=== PATIENT | male | born 1940 | race Caucasian/White ===

== ENCOUNTER 2016-07-12 10:51 | Outpatient (CLI) | payer MEDICARE, OTHER | END 2016-07-12 10:52 | disposition home or self-care (01) | LOC: SC 10:51 | PROVIDERS: ATTEND Nurse Practitioner Family | DX: G47.33 Obstructive sleep apnea (adult) (pediatric) (principal) | CPT/HCPCS: 99214; G0463; 99212 ==

== ENCOUNTER 2016-09-12 05:19 | Outpatient (CLI) | payer MEDICARE, OTHER | END 2016-09-12 05:20 | disposition critical access hospital (66) | DX: R06.00 Dyspnea, unspecified (principal) | CPT/HCPCS: A0425; A0427 ==

== ENCOUNTER 2016-09-12 05:37 | Emergency (ER) | payer MEDICARE, OTHER ==
[2016-09-12] MEDS ORDERED: FUROSEMIDE 40 MG/4 ML VIAL IVP STA (06:49)
[2016-09-12] MEDS ORDERED: FUROSEMIDE 40 MG/4 ML VIAL ONE (06:57)
[2016-09-12] MEDS ORDERED: ALBUTEROL 8 GM INHALER INH STA (07:48)
[2016-09-12] MEDS ORDERED: ALBUTEROL 8 GM INHALER INH ONE (07:56)
== END 2016-09-12 08:13 | disposition home or self-care (01) ==
DX: R06.00 Dyspnea, unspecified (principal); I48.91 Unspecified atrial fibrillation; I45.10 Unspecified right bundle-branch block; Z79.01 Long term (current) use of anticoagulants; I10 Essential (primary) hypertension; E78.00 Pure hypercholesterolemia, unspecified; J45.909 Unspecified asthma, uncomplicated
CPT/HCPCS: 36415; 71020; 80048; 81001; 83880; 84484; 85025; 85610; 85730; 93005; 93010; 94640; 96374; 99214; 99284; A9270; G0463

== ENCOUNTER 2016-09-12 10:19 | Outpatient (CLI) | payer MEDICARE, OTHER | END 2016-09-12 10:20 | disposition home or self-care (01) | DX: G47.33 Obstructive sleep apnea (adult) (pediatric) (principal) ==

== ENCOUNTER 2016-11-14 10:49 | Outpatient (CLI) | payer MEDICARE, OTHER | END 2016-11-14 10:50 | disposition home or self-care (01) | LOC: SC 10:49 | PROVIDERS: ATTEND Nurse Practitioner Family | DX: G47.33 Obstructive sleep apnea (adult) (pediatric) (principal) | CPT/HCPCS: 99214; G0463; 99212 ==

== ENCOUNTER 2017-01-17 10:39 | Outpatient (CLI) | payer MEDICARE, OTHER | END 2017-01-17 10:40 | disposition home or self-care (01) | LOC: SC 10:39 | PROVIDERS: ATTEND Nurse Practitioner Family | DX: G47.33 Obstructive sleep apnea (adult) (pediatric) (principal) | CPT/HCPCS: 99214; G0463; 99212 ==

== ENCOUNTER 2017-03-06 19:29 | Outpatient (CLI) | payer MEDICARE, OTHER | END 2017-03-06 19:30 | disposition home or self-care (01) | LOC: SC 19:29 | PROVIDERS: ATTEND Internal Medicine Pulmonary Disease | DX: G47.33 Obstructive sleep apnea (adult) (pediatric) (principal); G47.61 Periodic limb movement disorder; I48.91 Unspecified atrial fibrillation | CPT/HCPCS: 95811 ==

== ENCOUNTER 2017-03-26 09:15 | Outpatient (CLI) | payer MEDICARE, OTHER | END 2017-03-26 09:16 | disposition home or self-care (01) | LOC: SC 09:15 | PROVIDERS: ATTEND Nurse Practitioner Family | DX: G47.33 Obstructive sleep apnea (adult) (pediatric) (principal); G47.61 Periodic limb movement disorder | CPT/HCPCS: 99214; G0463; 99212 ==

== ENCOUNTER 2017-03-27 07:15 | Emergency (ER) | payer MEDICARE, OTHER ==
[2017-03-27] MEDS ORDERED: FUROSEMIDE 40 MG/4 ML VIAL IVP STA (07:37)
--- NOTE | 2017-03-27 07:40 | ED Physician Documentation ---
PD HPI DYSPNEA - Stated complaint Stated Complaint: SOA - Chief complaint Chief Complaint: Resp - History obtained from History obtained from: Patient, EMS - History of Present Illness Timing - onset: How many days ago (3) Timing - onset during: Exertion Timing - duration: Days (3) Timing - details: Gradual onset, Still present Inciting event(s): URI Improved by: O2, Inhaler/neb Worsened by: Exertion, Coughing Associated symptoms: Cough, Wheezing, Bilateral edema Similar symptoms before: Diagnosis (CHF, pneumonia) Recently seen: Clinic (3 weels ago) - Additional information Additional information: 76-year-old male with a history of atrial fibrillation, CHF and DVT on Coumadin has developed increasing exertional dyspnea over the past 3 days. He notes that he noticed this especially yesterday evening when he went to go [employer] with his family he had to stop in the parking lot on the way into the [facility] alley and he had a difficult time keeping up with his family last night. He states that through the night he has been dyspneic and there was some improvement with the use of an inhaler here in route to the hospital. He has had a cough productive of some sputum. He has been into see his primary care doctor about 3 weeks ago for some medication adjustments. Patient is a poor rambling historian and appears uncertain about his diagnoses. Patient does admit to excessive snacking on salty substances on the day of the [employer] game 2 days ago. Review of Systems Constitutional: denies: Fever Eyes: denies: Decreased vision Ears: denies: Ear pain Nose: denies: Rhinorrhea / runny nose, Congestion Throat: denies: Sore throat Cardiac: reports: Pedal edema. denies: Chest pain / pressure, Palpitations, Calf pain Respiratory: reports: Dyspnea, Cough, Wheezing GI: denies: Abdominal Pain, Nausea, Vomiting : denies: Dysuria, Frequency Skin: denies: Rash Musculoskeletal: denies: Neck pain, Back pain, Extremity pain Neurologic: denies: Generalized weakness, Focal weakness, Numbness PD PAST MEDICAL HISTORY - Past Medical History Cardiovascular: Hypertension, High cholesterol, Atrial fibrillation Respiratory: Asthma Neuro: None Endocrine/Autoimmune: None GI: GERD : Benign prostate hypertrophy HEENT: None Musculoskeletal: None Derm: None - Past Surgical History Past Surgical History: No General: Other - Present Medications Home Medications: Ambulatory Orders Medication Instructions Recorded Confirmed Abdiasr 1 mg PO DAILY 09/12/16 Coumadin 1 mg PO DAILY 09/12/16 Diuretic 1 mg PO DAILY 09/12/16 Metoprolol 1 mg PO DAILY 09/12/16 Spiriva 1 mcg INH DAILY 09/12/16 Levofloxacin [Levaquin] 500 mg PO DAILY #7 tablet 03/27/17 - Allergies Allergies/Adverse Reactions: Allergies Allergy/AdvReac Type Severity Reaction Status Date / Time No Known Drug Allergies Allergy Verified 09/12/16 05:54 - Social History Does the pt smoke?: No Smoking Status: Never smoker Does the pt drink ETOH?: Yes Does the pt have substance abuse?: No - Immunizations Immunizations are current?: No - POLST Patient has POLST: No PD ED PE NORMAL - Vitals Vital signs reviewed: Yes (tachypneic and hypertensive) - General General: Alert and oriented X 3, Well developed/nourished, Other (mild tachypnea at rest with n/c oxygen in place. ) - HEENT HEENT: Atraumatic, PERRL, EOMI, Ears normal - Neck Neck: Supple, no meningeal sign, No bony TTP - Cardiac Cardiac: RRR, No murmur - Respiratory Respiratory: Other (end inspiratory crackles bibasilar) - Abdomen Abdomen: Soft, Non tender - Back Back: No CVA TTP, No spinal TTP - Derm Derm: Normal color, Warm and dry, No rash - Extremities Extremities: No deformity, Other (trace edema bilaterally worse on the right and mild ) - Neuro Neuro: No motor deficit, No sensory deficit - Psych Psych: Normal mood, Normal affect Results - Vitals Vitals: Vital Signs - 24 hr 03/27/17 03/27/17 07:18 08:04 Temperature 36 C L Heart Rate 89 92 Respiratory 25 H 16 Rate Blood Pressure 141/96 H 127/81 H O2 Saturation 98 96 Oxygen O2 Source Room air Oxygen Flow Rate 2 - EKG (time done) 0738 Rate: Rate (enter#) (91) Rhythm: Atrial fibrillation Intervals: RBBB Compare to prior EKG: Changed from prior EKG (SPT 09-12-16 rate has decreased) Computer interpretation: Agree with computer - Labs Labs: Laboratory Tests 03/27/17 03/27/17 03/27/17 07:45 07:45 07:45 WBC 7.1 RBC 4.04 L Hgb 10.0 L Hct 32.0 L MCV 79.1 L MCH 24.7 L MCHC 31.3 L RDW 17.6 H Plt Count 282 MPV 7.2 L Neut # 5.5 Lymph # 0.8 L [place] # 0.7 Eos # 0.0 Baso # 0.1 Absolute Nucleated RBC 0.00 Nucleated RBC % 0.1 PT 28.3 H INR 2.5 H Sodium 142 Potassium 3.8 Chloride 111 Carbon Dioxide 21 Anion Gap 10.0 BUN 29 H Creatinine 1.4 H Estimated GFR (MDRD) 49 L Glucose 129 H Calcium 9.3 Total Bilirubin 1.1 H AST 25 ALT 20 Alkaline Phosphatase 119 Troponin I B-Natriuretic Peptide Total Protein 6.9 Albumin 3.7 Globulin 3.2 Albumin/Globulin Ratio 1.2 Lipase 48 Urine Color Urine Clarity Urine pH Ur Specific [place] Urine Protein Urine Glucose (UA) Urine Ketones Urine Occult Blood Urine Nitrite Urine Bilirubin Urine Urobilinogen Ur Leukocyte Esterase Ur Microscopic Review Urine Culture Comments 03/27/17 03/27/17 03/27/17 07:45 07:45 09:05 WBC RBC Hgb Hct MCV MCH MCHC RDW Plt Count MPV Neut # Lymph # [place] # Eos # Baso # Absolute Nucleated RBC Nucleated RBC % PT INR Sodium Potassium Chloride Carbon Dioxide Anion Gap BUN Creatinine Estimated GFR (MDRD) Glucose Calcium Total Bilirubin AST ALT Alkaline Phosphatase Troponin I 0.06 B-Natriuretic Peptide 1433 H Total Protein Albumin Globulin Albumin/Globulin Ratio Lipase Urine Color YELLOW Urine Clarity CLEAR Urine pH 6.0 Ur Specific [place] 1.015 Urine Protein NEGATIVE Urine Glucose (UA) NEGATIVE Urine Ketones NEGATIVE Urine Occult Blood NEGATIVE Urine Nitrite NEGATIVE Urine Bilirubin NEGATIVE Urine Urobilinogen 0.2 (NORMAL) Ur Leukocyte Esterase NEGATIVE Ur Microscopic Review NOT INDICATED Urine Culture Comments NOT INDICATED - Rads (name of study) 2 view chest Radiology: Prelim report reviewed (Impression: 1. Cardiomegaly with diffuse interstitial abnormality most consistent with interstitial edema.), EMP read indepedently, See rad report Procedures - IVC sono (time) 8528 Bedside IVC sono: IVC measures (cm) (2.65), IVC collapsed c insp (cm) (2.50), High CVP, Fluid overload PD MEDICAL DECISION MAKING - ED course Complexity details: reviewed old records, reviewed results, re-evaluated patient , considered differential, d/w patient ED course: 76 y/o male with 3 days of increasing dyspnea has had an increased salt load prior to worsening of symptoms has rales on exam and in the ED this morning the IVC is plethoric. He is given IV lasix 80mg. He has improvement in his breathing and improvement in his oxygen saturation.He has had a cough productive of some sputum as well. He has had an issue previously with infection and shortness of breath. I believe a course of antibiotic is indicated today. I have asked the patient increase his Lasix for the next 2 days and to follow-up with Dr. Rodriguez. Departure - Departure Disposition: Home, Self Care Clinical Impression: Congestive heart failure Qualifiers: Congestive heart failure type: combined Congestive heart failure chronicity: acute on chronic Qualified Code(s): I50.43 - Acute on chronic combined systolic (congestive) and diastolic (congestive) heart failure Condition: Stable Instructions: ED CHF General, ED Bronchitis Asthmatic Follow-Up: Quirino Rodriguez MD [Primary Care Provider] - Prescriptions: Levofloxacin [Levaquin] 500 mg PO DAILY #7 tablet Comments: Today it appears that your shortness of breath is related to fluid on your lungs from congestive heart failure. This is likely a result of an excessive salt intake several days ago. We have given you 80 mg of Lasix by vein today. Increase your daily dose of Lasix for the next 2 days. In addition appears there is a bronchial infection and we have placed you on some antibiotic. Because you are on Coumadin he will need to follow-up with Dr. Rodriguez to have your INR rechecked in 3 days.
[2017-03-27 07:57] LABS: BASOPHILS # (AUTO) 0.1 10^3/uL (0.0-0.1); BASOPHILS % (AUTO) 1.2 %; EOSINOPHILS % (AUTO) 0.5 %; LYMPHOCYTES # (AUTO) 0.8 10^3/uL (1.5-3.5); MEAN CORPUSCULAR HEMOGLOBIN 24.7 pg (27.0-31.0); MEAN CORPUSCULAR HGB CONC 31.3 g/dL (32.0-36.0); MEAN CORPUSCULAR VOLUME 79.1 fL (80.0-94.0); MEAN PLATELET VOLUME 7.2 fL (7.4-11.4); MONOCYTES # (AUTO) 0.7 10^3/uL (0.0-1.0); MONOCYTES % (AUTO) 9.5 %; NEUTROPHILS # (AUTO) 5.5 10^3/uL (1.5-6.6); NEUTROPHILS % (AUTO) 77.8 %; NUCLEATED RED BLOOD CELLS AUTO 0.1 /100WBC; RED BLOOD COUNT 4.04 10^6/uL (4.70-6.10); RED CELL DISTRIBUTION WIDTH 17.6 % (12.0-15.0); UNCORRECTED WHITE BLOOD COUNT 7.1 x10^3/uL; WHITE BLOOD COUNT 7.1 x10^3/uL (4.8-10.8)
[2017-03-27] MEDS ORDERED: FUROSEMIDE 40 MG/4 ML VIAL ONE (07:57)
[2017-03-27 08:07] LABS: ALBUMIN/GLOBULIN RATIO 1.2 (1.0-2.2); BILIRUBIN,TOTAL 1.1 mg/dL (0.2-1.0); CALCIUM 9.3 mg/dL (8.5-10.3); CREATININE 1.4 mg/dL (0.6-1.2); POTASSIUM 3.8 mmol/L (3.5-5.0); TOTAL PROTEIN 6.9 g/dL (6.7-8.2)
[2017-03-27 08:14] LABS: INR 2.5 (0.8-1.2); PT - PROTHROMBIN TIME 28.3 secs (9.9-12.6)
--- NOTE | 2017-03-27 08:42 | XRAY Preliminary Report ---
Exam: XR CHEST 2 VIEW PA/LAT IMPRESSION: 1. Cardiomegaly with diffuse interstitial abnormality most consistent with interstitial edema. [facility] SITE ID: [id number]
--- NOTE | 2017-03-27 08:44 | XRAY Report ---
EXAM: CHEST RADIOGRAPHY EXAM DATE: 03/27/2017 08:31 AM. CLINICAL HISTORY: Dyspnea. COMPARISON: 09/12/2016. TECHNIQUE: 2 views. FINDINGS: Lungs/Pleura: Diffuse interstitial abnormality is again seen with fissural thickening most likely due to edema. No areas of dense consolidation. There appear to be very small pleural effusions. No pneum othorax. Mediastinum: Heart is enlarged. Aorta is tortuous. Other: Degenerative changes of the thoracic spine and both shoulders. IMPRESSION: 1. Cardiomegaly with diffuse interstitial abnormality most consistent with interstitial edema. [facility] Referring Provider Line: [phone] SITE ID: [id number]
[2017-03-27 09:14] LABS: BILIRUBIN,URINE NEGATIVE (NEGATIVE)
[2017-03-27 09:18] LABS: UA CHARGE (STRIP ONLY) YES; UR CULTURE IF IND NOT INDICATED
[2017-03-27 09:54] VITALS: BP 135/87
== END 2017-03-27 10:10 | disposition home or self-care (01) ==
LOC: EDUNIT# → ED 07:15
DX: I11.0 Hypertensive heart disease with heart failure (principal); I50.43 Acute on chronic combined systolic (congestive) and diastolic (congestive) heart failure; I48.91 Unspecified atrial fibrillation; I45.2 Bifascicular block; Z79.01 Long term (current) use of anticoagulants; R94.31 Abnormal electrocardiogram [ECG] [EKG]; Z86.718 Personal history of other venous thrombosis and embolism; E78.00 Pure hypercholesterolemia, unspecified; J45.909 Unspecified asthma, uncomplicated; K21.9 Gastro-esophageal reflux disease without esophagitis; N40.0 Benign prostatic hyperplasia without lower urinary tract symptoms
CPT/HCPCS: 36415; 71020; 80053; 81001; 81003; 83690; 83880; 84484; 85025; 85610; 87086; 93005; 96374; 99284

== ENCOUNTER 2017-05-30 08:52 | Outpatient (CLI) | payer MEDICARE, OTHER | END 2017-05-30 08:53 | disposition home or self-care (01) | LOC: SC 08:52 | PROVIDERS: ATTEND Nurse Practitioner Family | DX: G47.33 Obstructive sleep apnea (adult) (pediatric) (principal) | CPT/HCPCS: 99214; G0463; 99212 ==

== ENCOUNTER 2017-07-05 08:49 | Outpatient (CLI) | payer MEDICARE, OTHER | END 2017-07-05 08:50 | disposition home or self-care (01) | LOC: SC 08:49 | PROVIDERS: ATTEND Nurse Practitioner Family | DX: G47.33 Obstructive sleep apnea (adult) (pediatric) (principal) | CPT/HCPCS: 99214; G0463; 99212 ==

== ENCOUNTER 2017-08-07 09:00 | Outpatient (CLI) | payer MEDICARE, OTHER | END 2017-08-07 09:01 | disposition home or self-care (01) | LOC: SC 09:00 | PROVIDERS: ATTEND Nurse Practitioner Family | DX: G47.33 Obstructive sleep apnea (adult) (pediatric) (principal); R06.00 Dyspnea, unspecified | CPT/HCPCS: 99214; G0463; 99212 ==

== ENCOUNTER 2017-09-11 09:43 | Outpatient (CLI) | payer MEDICARE, OTHER | END 2017-09-11 09:44 | disposition home or self-care (01) | LOC: SC 09:43 | PROVIDERS: ATTEND Nurse Practitioner Family | DX: G47.33 Obstructive sleep apnea (adult) (pediatric) (principal) | CPT/HCPCS: 99214; G0463; 99212 ==

== ENCOUNTER 2017-11-14 10:30 | Outpatient (CLI) | payer MEDICARE, OTHER | END 2017-11-14 10:31 | disposition home or self-care (01) | LOC: SC 10:30 | PROVIDERS: ATTEND Nurse Practitioner Family | DX: G47.33 Obstructive sleep apnea (adult) (pediatric) (principal) | CPT/HCPCS: 99214; G0463; 99212 ==

== ENCOUNTER 2017-12-12 10:21 | Outpatient (CLI) | payer MEDICARE, OTHER | END 2017-12-12 10:22 | disposition home or self-care (01) | LOC: SC 10:21 | PROVIDERS: ATTEND Nurse Practitioner Family | DX: G47.33 Obstructive sleep apnea (adult) (pediatric) (principal) | CPT/HCPCS: 99214; G0463; 99212 ==

== ENCOUNTER 2018-02-22 09:26 | Emergency (ER) | payer MEDICARE, OTHER ==
[2018-02-22 09:45] LABS: BASOPHILS # (AUTO) 0.1 10^3/uL (0.0-0.1); BASOPHILS % (AUTO) 1.1 %; EOSINOPHILS # (AUTO) 0.2 10^3/uL (0.0-0.7); EOSINOPHILS % (AUTO) 3.2 %; HGB - HEMOGLOBIN 11.6 g/dL (14.0-18.0); LYMPHOCYTES # (AUTO) 1.2 10^3/uL (1.5-3.5); LYMPHOCYTES % (AUTO) 25.5 %; MEAN CORPUSCULAR HEMOGLOBIN 30.7 pg (27.0-31.0); MEAN CORPUSCULAR HGB CONC 32.9 g/dL (32.0-36.0); MEAN CORPUSCULAR VOLUME 93.1 fL (80.0-94.0); MEAN PLATELET VOLUME 7.2 fL (7.4-11.4); MONOCYTES # (AUTO) 0.5 10^3/uL (0.0-1.0); MONOCYTES % (AUTO) 11.7 %; NEUTROPHILS # (AUTO) 2.7 10^3/uL (1.5-6.6); NEUTROPHILS % (AUTO) 58.5 %; PLT - PLATELET COUNT 170 10^3/uL (130-450); RED CELL DISTRIBUTION WIDTH 16.3 % (12.0-15.0); WHITE BLOOD COUNT 4.7 x10^3/uL (4.8-10.8)
[2018-02-22 10:11] LABS: CREATININE 4.1 mg/dL (0.6-1.2)
--- NOTE | 2018-02-22 10:11 | ED Physician Documentation ---
History of Present Illness - Stated complaint Stated Complaint: LAB ABNORMAL RESULT - Chief complaint Chief Complaint: General - Additonal information Additional information: hx from pt and records sent from PMD 77 male pmhx HTN HLD a fib anemia hypothyroid asthma COPD seizures PVD prior prostate seeds ongoing issues with confusion general wekaness and low BP has had some med changes (stopped lasix and spinonolactome) fell recently - stepped of a plank and boat races no injury denies fever cough NVD urinary sx bloody black BM PMD did labs and pt had elevated creat 4.4 and high potassium sent to ED Review of Systems Constitutional: reports: Fatigue, Weight Loss. denies: Fever, Chills Throat: denies: Sore throat Cardiac: denies: Chest pain / pressure Respiratory: denies: Dyspnea, Cough GI: denies: Abdominal Pain, Nausea, Vomiting : denies: Dysuria Musculoskeletal: denies: Neck pain, Back pain Neurologic: reports: Generalized weakness Endocrine: denies: Easy bruising / bleeding Immunocompromised: denies: Immunocompromised PD PAST MEDICAL HISTORY - Past Medical History Cardiovascular: Hypertension, High cholesterol, Peripheral Vascular Disease, Atrial fibrillation Respiratory: Asthma, COPD, Shortness of breath, Sleep apnea, CPAP use Neuro: Seizure disorder Endocrine/Autoimmune: None, HyPOthyroidism GI: GERD, GI bleed : Benign prostate hypertrophy HEENT: None, Glaucoma Musculoskeletal: None Derm: None - Past Surgical History Past Surgical History: No General: Other - Present Medications Home Medications: Ambulatory Orders Medication Instructions Recorded Confirmed Benacar 1 mg PO DAILY 09/12/16 Coumadin 1 mg PO DAILY 09/12/16 Metoprolol 1 mg PO DAILY 09/12/16 Spiriva 1 mcg INH DAILY 09/12/16 B Complex with Vitamin C [Vitamin 1 tab 02/22/18 B-Complex with Vit C] Brimonidine Tartrate 1 drops 02/22/18 Cholecalciferol (Vitamin D3) 1 tab 02/22/18 [Vitamin D3] Diphenoxylate HCl/Atropine 1 drops 02/22/18 [Diphenoxylat-Atrop 2.5-0.025/5] Dorzolamide HCl/Timolol Maleat 1 drops 02/22/18 [Dorzolamide-Timolol Eye Drops] Glycopyrrolate/Formoterol Fum 1 applic 02/22/18 [Bevespi Aerosphere Inhaler] Iron,Carbonyl [Iron Chews] 1 tab 02/22/18 Levothyroxine Sodium 1 tab 02/22/18 Multivit-Min/FA/Lycopen/Lutein 1 tab 02/22/18 [Centrum Silver Men Tablet] Naproxen 250 mg 02/22/18 Olmesartan Medoxomil [Benicar] 1 tab 02/22/18 Omeprazole [PriLOSEC] 1 tab 02/22/18 Tiotropium [place] [Spiriva 1 puffs 02/22/18 Respimat] - Allergies Allergies/Adverse Reactions: Allergies Allergy/AdvReac Type Severity Reaction Status Date / Time No Known Drug Allergies Allergy Verified 02/22/18 09:35 - Social History Does the pt smoke?: No Smoking Status: Current some day smoker Does the pt drink ETOH?: Yes Does the pt have substance abuse?: No - Immunizations Immunizations are current?: No - POLST Patient has POLST: No PD ED PE NORMAL - Vitals Vital signs reviewed: Yes - General General: Alert and oriented X 3 - HEENT HEENT: Atraumatic, PERRL - Neck Neck: Supple, no meningeal sign, No bony TTP - Cardiac Cardiac: RRR - Respiratory Respiratory: No respiratory distress, Clear bilaterally - Abdomen Abdomen: Soft, Non tender - Back Back: No CVA TTP - Derm Derm: Normal color - Extremities Extremities: No deformity - Neuro Neuro: Alert and oriented X 3, 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, No motor deficit, Normal speech Eye Opening: Spontaneous Motor: Obeys Commands Verbal: Oriented GCS Score: 15 Results - Vitals Vitals: Vital Signs - 24 hr 02/22/18 02/22/18 02/22/18 09:32 10:16 10:38 Temperature 36.6 C Heart Rate 81 73 64 Respiratory 20 14 14 Rate Blood Pressure 94/57 L 102/60 O2 Saturation 100 99 02/22/18 02/22/18 02/22/18 11:27 12:43 14:00 Temperature 36.5 C Heart Rate 66 65 77 Respiratory 18 18 Rate Blood Pressure 99/60 87/56 L 100/56 L O2 Saturation 97 100 100 02/22/18 02/22/18 16:15 17:02 Temperature Heart Rate 98 102 H Respiratory 17 20 Rate Blood Pressure 100/63 O2 Saturation 99 Oxygen O2 Source Room air - EKG (time done) 1000 Rate: Rate (enter#) (63) Intervals: Wide QRS, RBBB QRS: Normal Ischemia: Q waves (inferior) Other comments: Other comments (RBBB not new) 1650 Rate: Rate (enter#) (101) Rhythm: Atrial fibrillation Intervals: Wide QRS, RBBB Ischemia: Q waves (inferior) - Labs Labs: Laboratory Tests 02/22/18 02/22/18 02/22/18 09:41 09:41 09:41 WBC 4.7 L RBC 3.80 L Hgb 11.6 L Hct 35.4 L MCV 93.1 MCH 30.7 MCHC 32.9 RDW 16.3 H Plt Count 170 MPV 7.2 L Neut # (Auto) 2.7 Lymph # (Auto) 1.2 L [place] # (Auto) 0.5 Eos # (Auto) 0.2 Baso # (Auto) 0.1 Absolute Nucleated RBC 0.01 Nucleated RBC % 0.1 PT 37.7 H INR 3.5 H Sodium 139 Potassium 6.8 H* Chloride 121 H* Carbon Dioxide 9 L* Anion Gap 9.0 BUN 123 H* Creatinine 4.1 H Estimated GFR (MDRD) 14 L Glucose 118 H POC Whole Bld Glucose Calcium 9.0 Urine Color Urine Clarity Urine pH Ur Specific [place] Urine Protein Urine Glucose (UA) Urine Ketones Urine Occult Blood Urine Nitrite Urine Bilirubin Urine Urobilinogen Ur Leukocyte Esterase Urine RBC Urine WBC Ur Squamous Epith Cells Urine Crystals Urine Bacteria Urine Casts Urine Mucus Ur Microscopic Review Urine Culture Comments 02/22/18 02/22/18 02/22/18 09:45 14:09 14:38 WBC RBC Hgb Hct MCV MCH MCHC RDW Plt Count MPV Neut # (Auto) Lymph # (Auto) [place] # (Auto) Eos # (Auto) Baso # (Auto) Absolute Nucleated RBC Nucleated RBC % PT INR Sodium Potassium 7.0 H* Chloride Carbon Dioxide Anion Gap BUN Creatinine Estimated GFR (MDRD) Glucose POC Whole Bld Glucose 73 Calcium Urine Color YELLOW Urine Clarity CLEAR Urine pH 5.5 Ur Specific [place] 1.025 Urine Protein NEGATIVE Urine Glucose (UA) NEGATIVE Urine Ketones NEGATIVE Urine Occult Blood SMALL H Urine Nitrite NEGATIVE Urine Bilirubin NEGATIVE Urine Urobilinogen 0.2 (NORMAL) Ur Leukocyte Esterase NEGATIVE Urine RBC 6-10 H Urine WBC 4-5 Ur Squamous Epith Cells FEW Squamous Urine Crystals 3-5 Calcium Oxalate Urine Bacteria Rare Urine Casts 0-2 Fine Granular Urine Mucus Few Strands Ur Microscopic Review INDICATED Urine Culture Comments NOT INDICATED 02/22/18 02/22/18 15:56 17:23 WBC RBC Hgb Hct MCV MCH MCHC RDW Plt Count MPV Neut # (Auto) Lymph # (Auto) [place] # (Auto) Eos # (Auto) Baso # (Auto) Absolute Nucleated RBC Nucleated RBC % PT INR Sodium 141 Potassium 7.0 H* Chloride 121 H* Carbon Dioxide 11 L* Anion Gap 9.0 BUN 116 H* Creatinine 3.5 H Estimated GFR (MDRD) 17 L Glucose 124 H POC Whole Bld Glucose 179 H Calcium 9.2 Urine Color Urine Clarity Urine pH Ur Specific [place] Urine Protein Urine Glucose (UA) Urine Ketones Urine Occult Blood Urine Nitrite Urine Bilirubin Urine Urobilinogen Ur Leukocyte Esterase Urine RBC Urine WBC Ur Squamous Epith Cells Urine Crystals Urine Bacteria Urine Casts Urine Mucus Ur Microscopic Review Urine Culture Comments - Rads (name of study) CT AP Radiology: See rad report (no hydro, bilateral renal cysts and perhaps masses, seeds in proatte splenomegaly, pancreatic atrophy, indet liver lesions, diverticulosis) PD MEDICAL DECISION MAKING - ED course ED course: hyperkalemia (confirmed) with wide QRS (but RBBB not new) - gave albuterol, insulin/D50, calcium, bicarb and kayexalate - K still high acute renal failure with hyperK - etiology unclear - no obstructive process pt reports a subacute dwindle of weakness fatigue low BPs etc, occ naproxen but no regular NSAID use, no bactrim, has stopped diuretics, cysts on possible mass on CT not in fluid overload, K has been managed, making urine will d/w nephrology at [facility] Dr Price, will need transfer d/w Dr Price, without a reversible cause anticipate may worsen, K has been txed for the moment, he advises that pt be transferred to a tertiary care facility where dialysis and biopsy is available, d/w pt who is agreeable to this plan unfortunately [facility] full - unable to accept new pt for at least 6 hr [facility] has beds and hospitalist will accept but nephrology advises the dialysis service still has 8 pt to dialyze and cannot accept another , [facility], [facility] and [facility] also cannot accept the pt for emergent dialysis gave another round of albuterol, insulin D50, calcium, bicarb and started bicarb gtt, and insulin gtt as bicarb comes in D5 [place] Dr Ignacio Bolden will accept pt in transfer - but high risk transfer given his K and cardiac status - but also needing emergent dialysis not available here - have stabilized pt to the best of my ability here at [facility] - explained to pt and family in careful detail that travelling with his high potassium levels is not safe but he is needing dialysis emergently and that service it is simply not available at [facility] - and risk of staying here continuing treatments that do not seem to be working is also very risky - I recommend, given the limited options at this time, transfer to [place] - pt and family agree Dr Bolden req K centra so pt will be ready for dialysis access anmd ALNW suggested lasix so gave 40 IV prior to departure - Critical Care Time(min): 90 Time Includes: Direct patient care, Review records, Reassess patient, Document care, Coordinate care, Medical consult, Family consult for tx dec, See progress note Data interpretation: Labs, Prior EKG, See progress note - Sepsis Event Vital Signs: Vital Signs - 24 hr 02/22/18 02/22/18 02/22/18 09:32 10:16 10:38 Temperature 36.6 C Heart Rate 81 73 64 Respiratory 20 14 14 Rate Blood Pressure 94/57 L 102/60 O2 Saturation 100 99 02/22/18 02/22/18 02/22/18 11:27 12:43 14:00 Temperature 36.5 C Heart Rate 66 65 77 Respiratory 18 18 Rate Blood Pressure 99/60 87/56 L 100/56 L O2 Saturation 97 100 100 02/22/18 02/22/18 16:15 17:02 Temperature Heart Rate 98 102 H Respiratory 17 20 Rate Blood Pressure 100/63 O2 Saturation 99 Oxygen O2 Source Room air Departure - Departure Disposition: 02 Transfer Acute Care Hosp Clinical Impression: Hyperkalemia Renal failure Qualifiers: Renal failure chronicity: acute Acute renal failure type: unspecified Qualified Code(s): N17.9 - Acute kidney failure, unspecified Condition: Critical Discharge Date/Time: 02/22/18 17:45
[2018-02-22 10:12] LABS: BILIRUBIN,URINE NEGATIVE (NEGATIVE); GLUCOSE, URINE (UA) NEGATIVE (NEGATIVE); KETONES,URINE (UA) NEGATIVE (NEGATIVE); LEUKOCYTE ESTERASE, URINE NEGATIVE (NEGATIVE); NITRITE,URINE NEGATIVE (NEGATIVE); OCCULT BLOOD,URINE SMALL (NEGATIVE); PH,URINE 5.5 PH (5.0-7.5); PROTEIN,URINE NEGATIVE (NEGATIVE); UROBILINOGEN,URINE 0.2 (NORMAL) E.U./dL (NORMAL)
[2018-02-22 10:14] LABS: CLARITY,URINE CLEAR (CLEAR)
[2018-02-22 10:22] LABS: BACTERIA,URINE Rare /HPF (None Seen); MUCUS,URINE Few Strands; SQUAMOUS EPITHELIAL CELL,UR FEW Squamous (<= Few)
[2018-02-22] MEDS ORDERED: SODIUM POLYSTYRENE SULFONATE 15 GM/60 ML BOTTLE PO STA (10:22)
[2018-02-22] MEDS ORDERED: ALBUTEROL NEB 2.5 MG/3 ML INH STA ×2 (10:22→15:56)
[2018-02-22] MEDS ORDERED: DEXTROSE 50% ABBOJECT 25 GM/50 ML SYRINGE IVP STA ×2 (10:23→15:55)
[2018-02-22] MEDS ORDERED: INSULIN REGULAR HUMAN 100 UNIT/1 ML 10 ML MDV IVP STA ×2 (10:23→15:55)
[2018-02-22 10:24] LABS: CRYSTALS,URINE 3-5 Calcium Oxalate /LPF
[2018-02-22] MEDS ORDERED: CALCIUM GLUCONATE 1,000 MG in SODIUM CHLORIDE 0.9% 50 ML IV STA ×2 (10:24→15:54)
[2018-02-22] MEDS ORDERED: SODIUM BICARBONATE ABBOJECT 50 MEQ/50 ML SYRINGE IVP STA ×2 (10:24→15:54)
[2018-02-22] MEDS ORDERED: SODIUM CHLORIDE 0.9% 50 ML IV ONE (11:11)
--- NOTE | 2018-02-22 12:36 | CT Report ---
Reason: rising creat Procedure Date: 02/22/2018 Accession Number: [id number] / [id number] Procedure: CT - Abdomen/Pelvis W/O CPT Code: FULL RESULT: EXAM: CT ABDOMEN AND PELVIS (CT KUB) EXAM DATE: 02/22/2018 11:55 AM. CLINICAL HISTORY: Renal failure with rising creatinine. COMPARISONS: None. TECHNIQUE: Routine axial helical CT imaging was performed through the abdomen and pelvis without IV contrast. Reconstructions: Coronal and sagittal. In accordance with CT protocol optimization, one or more of the following dose reduction techniques were utilized for this exam: automated exposure control, adjustment of mA and/or KV based on patient size, or use of iterative reconstructive technique. FINDINGS: Lung Bases: Unremarkable. Right Kidney/Ureter: No hydronephrosis. No ureteral stone. 3 mm calcification at the mid upper pole. Multiple renal cysts. The largest is at the lower pole measuring approximately 4.5 cm. One somewhat ovoid and bilobed appearing cystic structure is moderate density at the mid to lower pole and measures approximate 5.4 cm. Left Kidney/Ureter: No hydronephrosis. No ureteral stone. 2 mm calcification at the mid pole. Multiple rounded lesions are present, which are moderate to high density. A few small to characterize hypoattenuating lesion, likely a small cyst. Small cyst at the upper pole medially measuring approximately 3 cm. Exophytic cyst at the midpole measures approximately 7.9 cm. Other Solid Organs: Liver contains a hypoattenuating lesion measuring approximately 13 mm (image 16, series 3), otherwise unremarkable. Spleen is enlarged up to approximately 15.7 cm. Moderately atrophic pancreas with fatty replacement. Calcification at the mid body. Unremarkable right adrenal. Mild left adrenal thickening. Gallbladder/Bile Ducts: Unremarkable. Peritoneal Cavity: No bowel obstruction. Colonic diverticulosis. No acute focal inflammatory change. No discrete collection. No bulky adenopathy. No free air. No free fluid. Pelvic Organs: Urinary bladder appears unremarkable. Multiple prostate metallic seeds. Mild fat-containing bilateral inguinal hernias. Vasculature: Atherosclerotic vascular calcification. Other: Degenerative changes of the spine and SI joints. IMPRESSION: 1. No hydronephrosis on either side. Bilateral renal cysts are present. The largest is on the left measuring up to approximately 7.9 cm. Multiple additional moderate to dense rounded lesions bilaterally, possibly representing high density cysts. However, these are indeterminate on this single phase noncontrast study. These could be further assessed with multiphasic renal mass protocol CT or MRI. 2. Mild splenomegaly. 3. Moderate pancreatic atrophy. 4. Indeterminate small hypoattenuating lesion within the liver measuring approximately 13 mm. 5. Mild colonic diverticulosis. No bowel obstruction. No acute focal inflammatory change identified. [facility]
[2018-02-22 13:44] LABS: INR 3.5 (0.8-1.2); PT - PROTHROMBIN TIME 37.7 secs (9.9-12.6)
[2018-02-22] MEDS ORDERED: SODIUM CHLORIDE 0.9% 1,000 ML IV ONE (15:25)
[2018-02-22] MEDS ORDERED: SODIUM BICARBONATE 100 MEQ in DEXTROSE 5% 1,000 ML IV STA (15:54)
[2018-02-22 16:38] LABS: CALCIUM 9.2 mg/dL (8.5-10.3); CREATININE 3.5 mg/dL (0.6-1.2)
[2018-02-22] MEDS ORDERED: PROTHROMBIN COMPLEX CONC 500 UNIT VIAL IVP STA (16:49)
[2018-02-22] MEDS ORDERED: INSULIN REGULAR HUMAN 100 UNIT in SODIUM CHLORIDE 0.9% 100ML 99 ML IV STA (17:08)
[2018-02-22] MEDS ORDERED: FUROSEMIDE 40 MG/4 ML VIAL IVP STA (17:34)
[2018-02-22 20:24] VITALS: BP 100/51
== END 2018-02-22 17:45 | disposition short-term general hospital (02) ==
LOC: ED 09:26
DX: E87.5 Hyperkalemia (principal); N17.9 Acute kidney failure, unspecified; J44.9 Chronic obstructive pulmonary disease, unspecified; I73.9 Peripheral vascular disease, unspecified; I45.2 Bifascicular block; I10 Essential (primary) hypertension; E78.00 Pure hypercholesterolemia, unspecified; E03.9 Hypothyroidism, unspecified; I48.91 Unspecified atrial fibrillation; Z79.01 Long term (current) use of anticoagulants; F17.200 Nicotine dependence, unspecified, uncomplicated
CPT/HCPCS: 36415; 74176; 80048; 81001; 84132; 85025; 85610; 93005; 94640; 96365; 96366; 96368; 96375; 96376; 99285; 99291; 99292; A9270; C9132; J1815; J7040; 81003; 87086

== ENCOUNTER 2018-02-26 12:07 | Outpatient (CLI) | payer MEDICARE, OTHER ==
--- NOTE | 2018-02-26 14:45 | XRAY Report ---
Reason: SPRAIN OF UNSPECIFIED LIGAMENT OF LEFT ANKLE, INIT Procedure Date: 02/26/2018 Accession Number: [id number] / [id number] Procedure: XR - Ankle 3 View LT CPT Code: FULL RESULT: EXAM: LEFT ANKLE RADIOGRAPHY EXAM DATE: 02/26/2018 12:17 PM. CLINICAL HISTORY: Sprain of unspecified ligament of left ankle, initial. COMPARISON: None. TECHNIQUE: 3 views. FINDINGS: Bones: Normal. No fractures or bone lesions. Joints: Normal. No effusion. No subluxations. The ankle mortise is normally aligned. Soft Tissues: Vascular calcifications are noted. IMPRESSION: No fracture or dislocation is identified. [facility]
== END 2018-02-26 12:08 | disposition home or self-care (01) ==
LOC: DI 12:07
PROVIDERS: ATTEND Internal Medicine
DX: S93.402A Sprain of unspecified ligament of left ankle, initial encounter (principal)

== ENCOUNTER 2018-05-08 13:48 | Outpatient (CLI) | payer MEDICARE, OTHER ==
--- NOTE | 2018-05-08 16:14 | XRAY Report ---
Reason: COPD Procedure Date: 05/08/2018 Accession Number: [id number] / [id number] Procedure: XRN - Chest 2 View X-Ray CPT Code: 11653 FULL RESULT: EXAM: CHEST RADIOGRAPHY EXAM DATE: 05/08/2018 02:07 PM. CLINICAL HISTORY: COPD. COMPARISON:Chest 1-view 02/22/2018 7:03 PM. TECHNIQUE: 2 views. FINDINGS: Lungs/Pleura: There are subtle bibasilar opacities, increased compared to prior. No definite pleural effusion or pneumothorax. No significant pulmonary edema. Flattened diaphragms are consistent with given history of COPD. Mediastinum: Apparent interval enlargement of the cardiac silhouette is likely due to AP technique. The aortic arch is again calcified. Other: None. IMPRESSION: Increased basilar markings in the setting of COPD, seen previously but now more prominent. [facility]
== END 2018-05-08 13:49 | disposition home or self-care (01) ==
LOC: DI.N 13:48
PROVIDERS: ATTEND Family Medicine
DX: J44.9 Chronic obstructive pulmonary disease, unspecified (principal); I50.9 Heart failure, unspecified
CPT/HCPCS: 71046

== ENCOUNTER 2018-09-03 06:11 | Outpatient (CLI) | payer MEDICARE, OTHER | END 2018-09-03 06:12 | disposition EMS.NT | LOC: EMS 06:11 | PROVIDERS: ATTEND Surgery | DX: R06.02 Shortness of breath (principal); R53.1 Weakness ==

== ENCOUNTER 2018-09-04 11:49 | Outpatient (CLI) | payer MEDICARE, OTHER ==
--- NOTE | 2018-09-04 15:47 | XRAY Report ---
Reason: COPD Procedure Date: 09/04/2018 Accession Number: [id number] / [id number] Procedure: XR - Chest 2 View X-Ray CPT Code: 18553 FULL RESULT: EXAM: CHEST RADIOGRAPHY EXAM DATE: 09/04/2018 11:59 AM. CLINICAL HISTORY: COPD. COMPARISON: CHEST 2 VIEW 05/08/2018 2:09 PM CHEST 2 VIEW PA/LAT 03/27/2017 8:23 AM. TECHNIQUE: 2 views. FINDINGS: Lungs/Pleura: No confluent airspace opacities. Minor coarsening of the interstitial opacities in the right lung base and appearance of bilateral mild cylindrical bronchiectasis, seen best on the lateral projection. Mediastinum: Borderline cardiomegaly is stable. Mediastinal and hilar contours are unchanged. Probable mild aortic ectasia and tortuosity also stable. Hilar contours are within normal limits. Other: None. IMPRESSION: 1. Probable mild cylindrical bronchiectasis and slight coarsening of basilar interstitial markings. In the right clinical context this could be secondary to episodes of aspiration. 2. No infiltrates. 3. Stable mild cardiomegaly and no edema. RADIA
== END 2018-09-04 11:50 | disposition home or self-care (01) ==
LOC: DI 11:49
PROVIDERS: ATTEND Family Medicine
DX: J44.9 Chronic obstructive pulmonary disease, unspecified (principal); I51.7 Cardiomegaly
CPT/HCPCS: 71046

== ENCOUNTER 2018-10-15 14:44 | Outpatient (CLI) | payer MEDICARE, OTHER | END 2018-10-15 14:45 | disposition home or self-care (01) | LOC: SC 14:44 | PROVIDERS: ATTEND Nurse Practitioner Family | DX: G47.33 Obstructive sleep apnea (adult) (pediatric) (principal) | CPT/HCPCS: 99214; G0463; 99212 ==

== ENCOUNTER 2019-04-17 10:51 | Outpatient (CLI) | payer MEDICARE, OTHER ==
[2019-04-17 11:43] VITALS: BP 106/60
--- NOTE | 2019-04-17 11:43 | SLEEP CARE CONSULTATION ---
Information from patient questionnaire entered by Triny Broussard. I have reviewed and concur with the information entered by Triny Broussard. This document represents the service I personally performed and the decisions made by me, Chaparrita Terrazas, RN, MSN, [employer]. History of Present Illness Previous diagnosis: Severe, Obstructive Sleep Apnea-Hypopnea Syndrome AHI: 30.2 Reason for follow up: first compliance after device update Equipment type: CPAP Equipment obtained from: [facility] (transfer to [facility] going well) Mask style: Full face (Air fit F20) Mask brand: Resmed Backup mask available: Yes Last cushion change: 2 weeks ago HPI additional information: The new autoCPAP pressure has resolved the air hunger and residual AHI to normal. He was hospitalized for fall and high potassium from a new medication, now discontinued. He has regular labs. He was also then diagnosed with gout. CPAP Compliance Data - Data Reviewed with Patient Average duration of nightly device use: 8.45 Compliance rate %: 96.7 Current pressure setting (cmH2O): 10-14 Humidity settin Heated hose settin Average residual AHI: 4.5 Average large leak: 4 min 26 sec Subjective Patient concerns: reports: dry mouth, nose, throat (mouth a few times a week ), other (Patient was given a new Air Fit large mask and is unable to use as the connector to the hose is missing. ). denies: aerophagia, mask discomfort, air blowing in eyes, mask leak noise, condensation in mask/hose, nasal congestion, epistaxis Observed to snore while using device: No Current pressure setting perceived as: comfortable On therapy, patient: reports: sleeping better, awakening more refreshed, being more awake and alert during the day, more rested overall. denies: drowsiness while driving Initial [place] Sleepiness Scale score: 13 Current [place] Sleepiness Scale score: 5 Allergies and Home Medications Known drug allergies: No Home medication list reviewed: Yes (added lidocaine patch for back pain ) Allergy and home medication list: Levothyroxine Sodium 125mcg tab one daily Levothyroxine Sodium 25mcg tab one daily Losartan Potassium (Cozaar) 25mg tab one daily Metoprolol Succinate ER 25mg tab one daily Lasix (Furosemide) 40 mg tab one twice daily Coumadin (Warfarin) 5mg tab 1-2 daily as directed Allopurinol 300mg tab one daily Spiriva Respirmat 2.5mcg Inhalation One inhalation daily Bevespi Aero. Inhalation 9mcg/4.8mcg One puff once daily Acetaminophen-Codeine 300-30mg tab as directed Omeprazole 20mg bid Centrum Silver 50+ Mens Tab one daily Vitamin D3 1000IU tab two daily Naproxen Sodium 220mg tab as needed Iron Sulfate (Ferrous Sulfate) 325mg tab one daily B-Complex Tab one daily Diphenoxylate-atropine (Lomotil) 2.5-0.025mg tab use as directed lidocaine patch as needed to back Review of Systems Review of systems same as previous: No (had xray for evaluation of back pain and pain better with lidocaine patches) Physical Exam Blood Pressure: 106/60 Cuff size: long Heart Rate: 86 O2 Saturation: 93 Height: 5 ft 7.3 in Weight: 215 lb 12.8 oz Body Mass Index: 33.5 BMI Classification: Obesity Class 1 Impression and Plan 1. Obstructive Sleep Apnea-Hypopnea Syndrome, severe, with good treatment compliance and good apnea control. The new pressure range on new CPAP reduced his residual AHI to normal. On CPAP therapy, the patient has better sleep quality and is more rested overall. For his mask concerns, I ordered for a hose connector part for his AirFit F20 size large mask cushion. It is hoped the RT will clarify with patient what he needs. He is to contact [facility] for follow up as needed. For his oral dryness, I showed him how to adjust his humidity with sample CPAP and discussed rationale for changing setting and heated hose in future for symptom control and weather changes. I also gave him printed Web instructions. He also has a regular hose and wondered how to attach and shown on sample device. If further questions, he is to contact the RT. Patient's apnea severity and rationale for treatment to reduce apnea, improve sleep quality and reduce cardiovascular and cerebrovascular events was reviewed. I also reviewed the benefit of consistent device use of CPAP for his hypertension, arrhythmia, * Continue CPAP pressure at 10-14 cmH2O * adaptor for mask * Adjust heated hose and humidity * Notify me if snoring with mask or feeling that the pressure is too much or too little * Attempt to lose weight * Return for follow up in 1 year, or sooner if concerns arise . I spent 100% of this 35 minute visit face to face with the patient with greater than 50% of this was spent time counseling the patient and coordination of care.
== END 2019-04-17 10:52 | disposition home or self-care (01) ==
LOC: SC 10:51
PROVIDERS: ATTEND Nurse Practitioner Family
DX: G47.33 Obstructive sleep apnea (adult) (pediatric) (principal); E66.9 Obesity, unspecified; Z68.33 Body mass index [BMI] 33.0-33.9, adult
CPT/HCPCS: 99214; G0463; 99212

== ENCOUNTER 2020-04-13 16:35 | Outpatient (CLI) | payer MEDICARE, OTHER ==
--- NOTE | 2020-04-13 17:12 | SLEEP CARE CONSULTATION ---
Information from patient questionnaire entered by Marely Dean. I have reviewed and concur with the information entered by Marely Dean. This document represents the service I personally performed and the decisions made by , Alexus Trevino ARNP. History of Present Illness Service Date and Time: 04/13/2020 1635 Previous diagnosis: Severe, Obstructive Sleep Apnea-Hypopnea Syndrome AHI: 30.2 Reason for follow up: annual (Last seen 04/2019) Equipment type: CPAP Equipment obtained from: [employer] (getting supplies as needed, very efficient) Mask style: Full face (Air fit F20) Backup mask available: Yes (old mask) Last cushion change: 1 month ago Year and Where: 2012 and 2016 Type of Sleep Study: Polysomnography HPI additional information: ANGELA MCCARTNEY was diagnosed to have severe, AHI 30.1, obstructive sleep apnea- hypopnea syndrome and returned today for CPAP therapy annual follow-up. CPAP Compliance Data - Data Reviewed with Patient Average duration of nightly device use: 6 h 26 min Compliance rate %: 80 Current pressure setting (cmH2O): 10-14 Humidity settin Heated hose settin Average residual AHI: 8.0 Central apnea: 1.4 Obstructive apnea: 5.7 Average large leak: 2 min 12 sec Subjective Patient concerns: reports: dry mouth, nose, throat (dry mouth ). denies: aerophagia, mask discomfort, air blowing in eyes, mask leak noise, condensation in mask/hose, nasal congestion, epistaxis, other Observed to snore while using device: No Current pressure setting perceived as: comfortable On therapy, patient: reports: sleeping better, awakening more refreshed, being more awake and alert during the day, more rested overall. denies: drowsiness while driving Initial [place] Sleepiness Scale score: 13 (in 2013) Current [place] Sleepiness Scale score: 3 Allergies and Home Medications Drug allergies reviewed: Yes (NKDA) Home medication list reviewed: Yes (no changes) Review of Systems Review of systems same as previous: Yes (no changes) Physical Exam Heart Rate: 61 O2 Saturation: 92 Height: 5 ft 7.3 in Weight: 210 lb Body Mass Index: 32.5 BMI Classification: Obese Impression and Plan 1. Obstructive Sleep Apnea-Hypopnea Syndrome, severe, with good treatment compliance and fair apnea control with an elevated AHI. On CPAP therapy, the patient has better sleep quality and is more rested overall. I will adjust his APAP pressure setting to 12-15 cm H2O to try to reduce his residual AHI. He has been having more oral dryness in the mornings. Oral dryness can be reduced by adjusting humidity setting higher or heated hose lower or by adjusting both settings. Oral instructions given on how to change humidity and heated hose settings with rationale explaining why to change. Patient advised that chronic oral dryness can affect dental health and advised to follow up with dentist if needed. Patient's apnea severity and rationale for treatment to reduce apnea, improve sleep quality and reduce cardiovascular and cerebrovascular events was reviewed. I also reviewed the benefit of consistent device use of CPAP for hypertension and arrhythmia. * Changeauto CPAP pressure to 12-15 cmH2O * Notify me if snoring with mask or feeling that the pressure is too much or too little * Attempt to lose weight * Call this office if any problems using CPAP * Return for follow up in 1-2 months, or sooner if concerns arise Counseling Topics: Spare mask, Weight loss health impact Visit Type: In Office Time Spent with Patient (minutes): 21 Provider Statement: I spent 100% of the Face to Face Visit with the patient with greater than 50% spent counseling the patient and coordination of care.
== END 2020-04-13 16:36 | disposition home or self-care (01) ==
LOC: SC 16:35
PROVIDERS: ATTEND Nurse Practitioner Family
DX: G47.33 Obstructive sleep apnea (adult) (pediatric) (principal); E66.9 Obesity, unspecified; Z68.32 Body mass index [BMI] 32.0-32.9, adult
CPT/HCPCS: 99213; G0463; 99212

== ENCOUNTER 2020-05-21 10:50 | Outpatient (CLI) | payer MEDICARE, OTHER ==
--- NOTE | 2020-05-21 11:21 | SLEEP CARE CONSULTATION ---
Information from patient questionnaire entered by Triny Broussard. I have reviewed and concur with the information entered by Triny Broussard. This document represents the service I personally performed and the decisions made by , Alexus Trevino ARNP. History of Present Illness Service Date and Time: 05/21/2020 1050 Previous diagnosis: Severe, Obstructive Sleep Apnea-Hypopnea Syndrome AHI: 30.2 (in 2012) Reason for follow up: one month (with pressure change) Equipment type: CPAP Equipment obtained from: [employer] (getting supplies as needed) Mask style: Full face Mask brand: Resmed (Air fit F20) Backup mask available: Yes (old mask) Last cushion change: 2 days ago Prior sleep studies: Yes Year and Where: 2012 - [facility] Sleep Type of Sleep Study: Polysomnography HPI additional information: ANGELA MCCARTNEY was diagnosed to have severe, AHI 30.2, obstructive sleep apnea- hypopnea syndrome and returned today for CPAP therapy one month pressure change follow-up. CPAP Compliance Data - Data Reviewed with Patient Average duration of nightly device use: 9 hr 10 min Compliance rate %: 100 Current pressure setting (cmH2O): 12-15 Humidity settin Heated hose settin Average residual AHI: 18.5 Central apnea: 3.1 Obstructive apnea: 14.4 Average large leak: 2 min 40 sec Subjective Patient concerns: reports: air blowing in eyes (just a little bit), dry mouth, nose, throat. denies: aerophagia, mask discomfort, mask leak noise, condensation in mask/hose, nasal congestion, epistaxis, other Observed to snore while using device: No Current pressure setting perceived as: comfortable On therapy, patient: reports: sleeping better, awakening more refreshed, being more awake and alert during the day, more rested overall. denies: drowsiness while driving Initial [place] Sleepiness Scale score: 13 (in 2013) Current [place] Sleepiness Scale score: 4 Allergies and Home Medications Drug allergies reviewed: Yes (NKDA) Home medication list reviewed: Yes (no changes) Review of Systems Review of systems same as previous: Yes (no changes) Physical Exam Heart Rate: 92 O2 Saturation: 91 Height: 5 ft 7.3 in Weight: 214 lb (with heavy coat on) Body Mass Index: 33.2 BMI Classification: Obese Impression and Plan 1. Obstructive Sleep Apnea-Hypopnea Syndrome, severe, with excellent treatment compliance and poor apnea control with elevated residual AHI 18.5. On CPAP therapy, the patient has better sleep quality and is more rested overall. I reviewed patient chart and found his last titration study in 03/2017 showed his optimal pressure to be CPAP at 13 cm H2O. He has been using 14-15 cm H2O with last pressure change and having higher residual AHI. His CA index and OA index are both more elevated with the higher pressures. I think we should adjust back to the 13 cm H2O to reduce his residual AHI. He continues to have some oral dryness. His heated hose is at 3 and humidity at 4. I advised him to increase humidity to 5 first and then maybe reduce heated hose to reduce oral dryness. Oral dryness can be reduced by adjusting humidity setting higher or heated hose lower or by adjusting both settings. Oral and demonstrated instructions given on how to change humidity and heated hose settings with rationale explaining why to change. Oral dryness can also be reduced by reducing mask leaks. Patient advised that chronic oral dryness can affect dental health and advised to follow up with dentist. In addition, there are oral dryness products that can be used to reduce dryness such as Biotene products, Dry mouth rinse and Xylomelts. Patient to discuss best option with dentist. Patient's apnea severity and rationale for treatment to reduce apnea, improve sleep quality and reduce cardiovascular and cerebrovascular events was reviewed. I also reviewed the benefit of consistent device use of CPAP for hypertension, and arrhythmia. * Changeauto CPAP pressure to 13 cmH2O * Notify me if snoring with mask or feeling that the pressure is too much or too little * Attempt to lose weight * Call this office if any problems using CPAP * Return for follow up in 1-2 months, or sooner if concerns arise Counseling Topics: Spare mask Visit Type: In Office Time Spent with Patient (minutes): 16 Provider Statement: I spent 100% of the Face to Face Visit with the patient with greater than 50% spent counseling the patient and coordination of care.
== END 2020-05-21 10:51 | disposition home or self-care (01) ==
LOC: SC 10:50
PROVIDERS: ATTEND Nurse Practitioner Family
DX: G47.33 Obstructive sleep apnea (adult) (pediatric) (principal); E66.9 Obesity, unspecified; Z68.33 Body mass index [BMI] 33.0-33.9, adult
CPT/HCPCS: 99213; G0463; 99212

== ENCOUNTER 2020-07-22 11:31 | Outpatient (CLI) | payer MEDICARE, OTHER ==
--- NOTE | 2020-07-22 11:57 | SLEEP CARE CONSULTATION ---
Information from patient questionnaire entered by Triny Broussard. I have reviewed and concur with the information entered by Triny Broussard. This document represents the service I personally performed and the decisions made by , Alexus Trevino ARNP. History of Present Illness Service Date and Time: 07/22/2020 1131 Previous diagnosis: Severe, Obstructive Sleep Apnea-Hypopnea Syndrome AHI: 30.2 (in 2012) Reason for follow up: other (2 month with pressure change) Equipment type: CPAP Equipment obtained from: [employer] (getting supplies as needed, very efficient) Mask style: Full face Mask brand: Resmed (Air fit F20) Backup mask available: Yes (old mask) Last cushion change: 3-4 days ago Prior sleep studies: Yes Year and Where: 2012 - [facility] Type of Sleep Study: Polysomnography HPI additional information: ANGELA MCCARTNEY was diagnosed to have severe, AHI 30.2, obstructive sleep apnea- hypopnea syndrome and returned today for CPAP therapy two month pressure change follow-up. CPAP Compliance Data - Data Reviewed with Patient Average duration of nightly device use: 8 hr 35 min Compliance rate %: 95 (60 days) Current pressure setting (cmH2O): 13-15 Humidity settin Heated hose settin Average residual AHI: 16.4 Average large leak: 4 min 49 sec Subjective Patient concerns: denies: aerophagia, mask discomfort, air blowing in eyes, mask leak noise, condensation in mask/hose, nasal congestion, dry mouth, nose, throat, epistaxis, other Observed to snore while using device: No (little occasionally, normally when tossing and mask dislodges) Current pressure setting perceived as: comfortable On therapy, patient: reports: sleeping better, awakening more refreshed, being more awake and alert during the day, more rested overall. denies: drowsiness while driving Initial [place] Sleepiness Scale score: 13 (in 2013) Current [place] Sleepiness Scale score: 3 Allergies and Home Medications Drug allergies reviewed: Yes (NKDA) Home medication list reviewed: Yes (no changes) Review of Systems Review of systems same as previous: Yes (no changes) Physical Exam Heart Rate: 81 O2 Saturation: 95 Height: 5 ft 7.3 in Weight: 199 lb Weight change since last visit: 10 Body Mass Index: 30.9 BMI Classification: Obese Impression and Plan 1. Obstructive Sleep Apnea-Hypopnea Syndrome, severe, with good treatment compliance and fair apnea control with elevated residual AHI. On CPAP therapy, the patient has better sleep quality and is more rested overall. The patients pressure will be changed to autoCPAP 10-13 cmH20 for elevation of residual AHI. Patient advised to contact me if pressure change is uncomfortable so that it can be adjusted. Goals for apnea control discussed. He has lost about 10 pounds since his last visit and states that is PCP adjusted his thyroid medication. He was encouraged to continue to try to obtain a healthy weight. Patient's apnea severity and rationale for treatment to reduce apnea, improve sleep quality and reduce cardiovascular and cerebrovascular events was reviewed. I also reviewed the benefit of consistent device use of CPAP for hypertension, and arrhythmia. * Change auto CPAP pressure to 10-13 cmH2O * Notify me if snoring with mask or feeling that the pressure is too much or too little * Continue to try to lose weight to a healthy weight * Call this office if any problems using CPAP * Return for follow up in 1-2 months, or sooner if concerns arise Counseling Topics: Spare mask, Weight loss health impact Visit Type: In Office Time Spent with Patient (minutes): 17 Provider Statement: I spent 100% of the Face to Face Visit with the patient with greater than 50% spent counseling the patient and coordination of care.
== END 2020-07-22 11:32 | disposition home or self-care (01) ==
LOC: SC 11:31
PROVIDERS: ATTEND Nurse Practitioner Family
DX: G47.33 Obstructive sleep apnea (adult) (pediatric) (principal); E66.9 Obesity, unspecified; Z68.30 Body mass index [BMI] 30.0-30.9, adult
CPT/HCPCS: 99212; G0463

== ENCOUNTER 2020-09-23 11:31 | Outpatient (CLI) | payer MEDICARE, OTHER ==
--- NOTE | 2020-09-23 11:56 | SLEEP CARE CONSULTATION ---
Information from patient questionnaire entered by Triny Broussard. I have reviewed and concur with the information entered by Triny Broussard. This document represents the service I personally performed and the decisions made by , Alexus Trevino ARNP. History of Present Illness Service Date and Time: 09/23/2020 1131 Previous diagnosis: Severe, Obstructive Sleep Apnea-Hypopnea Syndrome AHI: 30.2 (in 2012) Reason for follow up: other (2 month with pressure change) Equipment type: CPAP Equipment obtained from: [employer] (getting supplies as needed, very efficient) Mask style: Full face Backup mask available: Yes (old mask) Last cushion change: 1 month Prior sleep studies: Yes Year and Where: 2012 - [facility] Sleep Type of Sleep Study: Polysomnography HPI additional information: ANGELA MCCARTNEY was diagnosed to have severe, AHI 30.2, obstructive sleep apnea- hypopnea syndrome and returned today for CPAP therapy two month pressure change follow-up. CPAP Compliance Data - Data Reviewed with Patient Average duration of nightly device use: 6 hr 45 min Compliance rate %: 80 (60 days) Current pressure setting (cmH2O): 10-13 Humidity settin Heated hose settin Average residual AHI: 12.4 Average large leak: 23 sec Subjective Patient concerns: reports: dry mouth, nose, throat. denies: aerophagia, mask discomfort, air blowing in eyes, mask leak noise, condensation in mask/hose, nasal congestion, epistaxis, other Current pressure setting perceived as: comfortable (just a little low) On therapy, patient: reports: sleeping better, awakening more refreshed, being more awake and alert during the day, more rested overall. denies: drowsiness while driving Initial [place] Sleepiness Scale score: 13 (in 2013) Current [place] Sleepiness Scale score: 5 Allergies and Home Medications Home medication list reviewed: Yes (no changes) Review of Systems Review of systems same as previous: Yes (no changes) Physical Exam Heart Rate: 94 O2 Saturation: 90 Height: 5 ft 7.3 in Weight: 196 lb Body Mass Index: 30.4 BMI Classification: Obese Impression and Plan 1. Obstructive Sleep Apnea-Hypopnea Syndrome, severe, with good treatment compliance and fair apnea control with minimally elevated residual AHI. On CPAP therapy, the patient has better sleep quality and is more rested overall. Patient feels the pressure is just a little too low, so will increase one degree to 14 cmH2O on range. The patients pressure will be changed to autoCPAP 10-14 cmH20 for elevation of residual AHI. I reviewed his last titration study in 2017 and this states the best pressure setting to be about 13 cmH2O. Patient advised to contact me if pressure change is uncomfortable so that it can be adjusted. Patient does not want to repeat titration study at this time. Goals for apnea control discussed. He has been getting some dry lips lately. Oral dryness can be reduced by adjusting humidity setting higher or heated hose lower or by adjusting both settings. His humidifier is set at 3 and he was advised to increase to 4 to reduce oral dryness. Patient's apnea severity and rationale for treatment to reduce apnea, improve sleep quality and reduce cardiovascular and cerebrovascular events was reviewed. I also reviewed the benefit of consistent device use of CPAP for hypertension and arrhythmia. * Change auto CPAP pressure to 10-14 cmH2O * Notify me if snoring with mask or feeling that the pressure is too much or too little * Attempt to lose weight * Call this office if any problems using CPAP * Return for follow up in 1 year, or sooner if concerns arise Counseling Topics: Spare mask, Weight loss health impact Visit Type: In Office Time Spent with Patient (minutes): 17 Provider Statement: I spent 100% of the Face to Face Visit with the patient with greater than 50% spent counseling the patient and coordination of care.
== END 2020-09-23 11:32 | disposition home or self-care (01) ==
LOC: SC 11:31
PROVIDERS: ATTEND Nurse Practitioner Family
DX: G47.33 Obstructive sleep apnea (adult) (pediatric) (principal); E66.9 Obesity, unspecified; Z68.30 Body mass index [BMI] 30.0-30.9, adult
CPT/HCPCS: 99212; G0463

== ENCOUNTER 2020-12-17 08:00 | Outpatient (CLI) | payer MEDICARE, OTHER | END 2020-12-17 23:59 | disposition home or self-care (01) | LOC: LAB.N 08:00 | PROVIDERS: ATTEND Emergency Medicine | DX: L08.9 Local infection of the skin and subcutaneous tissue, unspecified (principal); L03.116 Cellulitis of left lower limb | CPT/HCPCS: 87070; 87077; 87181; 87205 ==